=== PATIENT | female | born 1980 | race Two or more races ===

== ENCOUNTER 2024-09-28 18:59 | Emergency (ER) | payer OTHER ==
[~2024-09-28] VITALS: Ht 160 cm; Wt 63.5 kg
[2024-09-28] MEDS ORDERED: GABAPENTIN 100 MG CAPSULE PO ONE (20:00)
[2024-09-28 21:28] LABS: HEMATOCRIT 41.6 % (36.0-45.00); HEMOGLOBIN 14.1 g/dL (12.0-15.00); MEAN CELL VOLUME 82.7 fL (80.00-100.00); MEAN CORPUSCULAR HEMOGLOBIN 28.1 pg (27.00-32.0); MEAN CORPUSCULAR HGB CONC 33.9 g/dl (32.0-36.0); PLATELET COUNT 310 K/uL (150-450); RED BLOOD COUNT 5.02 M/uL (4.00-6.00); RED CELL DISTRIBUTION WIDTH 13.4 % (11.5-14.5)
[2024-09-28] MEDS ORDERED: NEURONTIN300 MG PO (22:53)
== END 2024-09-28 22:56 | disposition home or self-care (01) ==
LOC: ER 19:00
PROVIDERS: General Practice
DX: R53.1 Weakness (principal); G62.9 Polyneuropathy, unspecified; E78.00 Pure hypercholesterolemia, unspecified; Z20.822 Contact with and (suspected) exposure to COVID-19